=== PATIENT | female | born 1940 | race Caucasian/White ===

== ENCOUNTER → 2020-06-18 | Day surgery (SDC) | payer MEDICARE, OTHER ==
[2020-06-13 12:21] LABS: BASOPHILS # (AUTO) 0.1 (0.0-0.1); BASOPHILS % 0.9 % (0.0-1.0); EOSINOPHILS # (AUTO) 0.3 (0.0-0.4); EOSINOPHILS % 3.1 % (0.0-6.0); HEMATOCRIT 44.2 % (34.2-44.1); HEMOGLOBIN 13.8 g/dL (12.0-16.0); LYMPHOCYTES # (AUTO) 2.1 (1.0-3.2); LYMPHOCYTES % 19.2 % (18.0-39.1); MEAN CORPUSCULAR HGB CONC 31.2 g/dL (31-35); MEAN CORPUSCULAR VOLUME 86.5 fL (81-99); MONOCYTES # (AUTO) 0.8 (0.2-0.8); MONOCYTES % 6.9 % (4.4-11.3); NEUTROPHILS # (AUTO) 7.6 (2.1-6.9); NEUTROPHILS % 69.6 % (38.7-80.0); PLATELET COUNT 325 x10e3/uL (140-360); RED BLOOD COUNT 5.11 x10e6/uL (3.6-5.1); RED CELL DISTRIBUTION WIDTH 15.8 % (11.7-14.4)
--- NOTE | 2020-06-13 13:13 | Diagnostic Imaging Report ---
EXAMINATION: CHEST 2 VIEWS INDICATION: ^[id number] ^[id number] ^PRE OP CLEARANCE COMPARISON: None FINDINGS: TUBES and LINES: None. LUNGS: Lungs are well inflated. Chronic appearing changes in the lungs with what appear to be regions of scarring/atelectasis most pronounced in the right midlung and left lower lung. PLEURA: No pleural effusion or pneumothorax. HEART AND MEDIASTINUM: Large retrocardiac hiatal hernia. The cardiomediastinal silhouette is otherwise unremarkable. BONES AND SOFT TISSUES: No acute osseous lesion. Soft tissues are unremarkable. UPPER ABDOMEN: No free air under the diaphragm. IMPRESSION: Large retrocardiac hiatal hernia. Chronic appearing changes in the lungs with what appear to be regions of scarring/atelectasis most pronounced in the right midlung and left lower lung. Signed by: Dr. Cornelio Spencer M.D. on 06/13/2020 1:10 PM
[~2020-06-18] MED LIST: BUPIVACAINE HCL 0.5% INJ 30 ML VIAL INJ ONE; CEFAZOLIN SOD 1 GM/NS 50ML 100 ML IV ONE; DEXAMETHASONE SOD PHOS INJ 4 MG/ML VIAL ONE; EPHEDRINE SULFATE INJ 50 MG/ML VIAL ONE; FENTANYL CITRATE/PF 100MCG/2 ML INJ ONE; LEVOCETIRIZINE D5 MG PO; LIDOCAINE HCL 2% LOCAL INJ 5 ML SDV VIAL INJ ONE; LOSARTAN POTASS25 MG PO; ONDANSETRON HCL INJ 2MG/ML 2ML 2 MG/ML VIAL ONE; PROPOFOL IV EMULSION 10 MG/ML 20 ML VIAL ONE; SEVOFLURANE INHAL SOLN 250 ML PEN BTL ONE; ULTRAM50 MG PO
[2020-06-18 10:20] VITALS: BP 145/67
--- NOTE | 2020-06-21 19:23 | Operative Report ---
DATE OF PROCEDURE: 06/18/2020 SURGEON: Konstantin Tinajero MD PREOPERATIVE DIAGNOSIS: Displaced left distal radius fracture. POSTOPERATIVE DIAGNOSIS: Displaced left distal radius fracture. OPERATIONS AND PROCEDURES PERFORMED: The patient underwent a closed reduction and percutaneous pin fixation of her left distal radius fracture. SYNTHETIC PLASTERER: None. ANESTHESIA: General endotracheal intubation anesthesia. IV FLUIDS: As per the Anesthesia record. BRIEF DESCRIPTION OF THE PATIENT'S OPERATIVE PROCEDURE: Ms. Gross was taken to the operating room and placed in supine position on the operating table. Following induction of general anesthesia as well as endotracheal intubation, the patient's left upper extremity was examined under anesthesia. She was found to have a gross deformity at the level of the wrist joint. There was bruising and ecchymosis overlying the distal radius. Fluoroscopic evaluation of the wrist joint demonstrated a markedly displaced distal radius fracture. The patient's upper extremity was prepped and draped in standard surgical fashion. The case was begun by manipulating the wrist in a closed fashion. Longitudinal traction was placed across the patient's fracture site and a west force was applied to the distal fracture fragment and bring that fracture fragment in line with the remainder of the radial shaft. The position of the fracture was assessed fluoroscopically and found to be appropriate. Two pins were inserted from distal to proximal capturing the fracture in its reduced position. The position of those pins as well as reduction of fracture was then assessed fluoroscopically and found to be appropriate. The pin sites were then dressed sterilely. A sugar-tong splint was applied to the upper extremity and the patient was awakened and taken to postanesthesia care unit in stable condition. MD ANDREW Garcia/MODL /[id number]
== END | disposition home or self-care (01) ==
LOC: OR 07:22
PROVIDERS: ATTEND Specialist
DX: S52.502A Unspecified fracture of the lower end of left radius, initial encounter for closed fracture (principal); M54.9 Dorsalgia, unspecified; M54.2 Cervicalgia; I45.10 Unspecified right bundle-branch block; K44.9 Diaphragmatic hernia without obstruction or gangrene; I10 Essential (primary) hypertension; R01.1 Cardiac murmur, unspecified; E78.5 Hyperlipidemia, unspecified; F32.9 Major depressive disorder, single episode, unspecified; W10.8XXA Fall (on) (from) other stairs and steps, initial encounter; Z01.810 Encounter for preprocedural cardiovascular examination; Z01.812 Encounter for preprocedural laboratory examination; Z01.818 Encounter for other preprocedural examination; Z11.59 Encounter for screening for other viral diseases; Z85.42 Personal history of malignant neoplasm of other parts of uterus
CPT/HCPCS: 25606; 36415; 71046; 85025; 93005; C1713; J0690; J1100; J2001; J2405; J2704; J3010; U0002; 76000